=== PATIENT | female | born 1990 ===

== ENCOUNTER → 2021-12-04 | Outpatient (REF) | LOC: M EMP 12:46 | PROVIDERS: ATTEND Family Medicine | DX: Z11.52 Encounter for screening for COVID-19 (principal) ==

== ENCOUNTER → 2021-12-14 | Outpatient (REF) | LOC: M EMP 14:11 | PROVIDERS: ATTEND Family Medicine | DX: Z11.52 Encounter for screening for COVID-19 (principal) ==

== ENCOUNTER → 2022-01-30 | Outpatient (REF) | LOC: M EMP 12:01 | PROVIDERS: ATTEND Family Medicine | DX: Z11.52 Encounter for screening for COVID-19 (principal) ==